=== PATIENT | female | born 1950 | race Caucasian/White ===

== ENCOUNTER 2018-10-04 15:12 | Observation (INO) ==
[2018-10-04 16:10] LABS: Basophils % 0.4 % (0.0-0.8); Eosinophils % 0.4 % (0.00-10.9); Hematocrit 39.3 VOL% (35.7-47.0); Hemoglobin 12.7 GM/DL (12.0-16.0); Immature Granulocytes % 0.2 %; Immature Granulocytes Absolute 0.01 #; Lymphocytes # 1.6 10*3/uL (1.4-4.0); Lymphocytes % 35.3 % (21.3-54.2); Mean Corpuscular HGB Conc 32.3 GM/DL (32-36); Mean Corpuscular Hemoglobin 31 PG (27-34); Mean Corpuscular Volume 94.9 FL (87-102); Mean Platelet Volume 10.9 FL (9.6-12.0); Monocytes # 0.5 10*3/uL (0.11-0.8); Monocytes % 10.5 % (1.7-12.7); Neutrophils # 2.4 10*3/uL (1.4-7.4); Neutrophils % 53.2 % (38.7-73.9); Platelet Count 222 T/CUMM (130-400); Red Blood Count 4.14 MC/CUMM (3.8-5.5); Red Cell Distribution Width 13.1 % (9.3-17.3); White Blood Count 4.5 T/CUMM (4-12)
[2018-10-04 16:15] LABS: Apearance,Urine Slightly Hazy (Clear); Bilirubin,Urine Negative (Negative); Blood, Urine Negative (Negative); Glucose,Urine (UA) Negative (Negative); Ketones,Urine Negative (Negative); Nitrite,Urine Negative (Negative); Protein,Urine Negative; RBC,Urine <1 /HPF (0-4); Squamous Epithelial Cell,Urine Occasional /HPF (0-10); Urine Color Yellow (Yellow); Urine Specific Gravity 1.004 (1.001-1.035); Urine Urobilinogen < 2.0 EU/DL (0.2-1.0)
[2018-10-04] MEDS ORDERED: LABETALOL 20 MG/4 ML SYRINGE IV STA (16:21)
[2018-10-04 16:32] LABS: Calcium 9.7 MG/DL (8.5-10.1); Osmolality,Calculated 280.5 MOS/KG (273-304); Potassium 3.8 MMOL/L (3.5-5.1)
[2018-10-04] MEDS ORDERED: ACETAMINOPHEN 325 MG TABLET PO PRN (17:56)
[2018-10-04] MEDS ORDERED: ONDANSETRON 4 MG/2 ML VIAL IV PRN (17:56)
[2018-10-04] MEDS ORDERED: LABETALOL 100 MG/20 ML VIAL IV STA (18:03)
[2018-10-04] MEDS ORDERED: amLODIPine 5 MG TABLET PO STA (18:03)
[2018-10-04] MEDS ORDERED: hydroCHLOROthiazide 25 MG TABLET PO STA (18:05)
[2018-10-04] MEDS ORDERED: POTASSIUM CHLORIDE 20 MEQ TABLET PO STA (18:05)
[2018-10-04] MEDS: ENOXAPARIN 40 MG/0.4 ML SYRINGE SUBCUT SCH (20:12)
[2018-10-05 06:13] LABS: Potassium 4.1 MMOL/L (3.5-5.1); Risk Ratio 2.92
[2018-10-05] MEDS ORDERED: hydroCHLOROthiazide 12.5 MG CAPSULE PO SCH (09:00)
[2018-10-05] MEDS ORDERED: LISINOPRIL/HCTZ 10-12.5 MG TABLET PO SCH (09:00)
[2018-10-05] MEDS ORDERED: amLODIPine 10 MG TABLET PO SCH (09:00)
[2018-10-05] MEDS: amLODIPine 5 MG TABLET PO SCH ×2 (09:03→20:06)
[2018-10-05] MEDS: POTASSIUM CHLORIDE 20 MEQ TABLET PO SCH (09:03)
[2018-10-05] MEDS: METOPROLOL TARTRATE 50 MG TABLET PO SCH ×2 (14:50→20:06)
[2018-10-05] MEDS ORDERED: hydrALAZINE 20 MG/1 ML VIAL IV PRN (18:51)
[2018-10-05] MEDS: ENOXAPARIN 40 MG/0.4 ML SYRINGE SUBCUT SCH (20:05)
[2018-10-05] MEDS: LISINOPRIL/HCTZ 10-12.5 MG TABLET PO SCH (20:06)
[2018-10-06 08:38] VITALS: BP 189/93
[2018-10-06] MEDS: LISINOPRIL/HCTZ 10-12.5 MG TABLET PO SCH (08:40)
[2018-10-06] MEDS: POTASSIUM CHLORIDE 20 MEQ TABLET PO SCH (08:40)
[2018-10-06] MEDS ORDERED: METOPROLOL SUCCINATE XL 100 MG TABLET PO SCH (09:00)
[2018-10-06] MEDS ORDERED: amLODIPine 10 MG TABLET PO SCH (09:00)
== END 2018-10-06 09:30 | disposition home or self-care (01) ==
LOC: N.ED 15:12 → N.EDINP 15:12 → SUATTDRO 17:56 → N.4E 18:51
PROVIDERS: ADMIT Internal Medicine; ATTEND Hospitalist